=== PATIENT | female | born 1980 | race Hispanic/Latino ===

== ENCOUNTER 2017-06-01 00:28 | Emergency (ER) | payer SELFPAY ==
[~2017-06-01] VITALS: Ht 165.1 cm; Wt 79.9 kg
[2017-06-01 01:20] LABS: BASOPHIL (%) 1.3 % (0-1); BASOPHIL COUNT 0.1 K/uL (0-0.1); EOSINOPHIL (%) 1.4 % (0-5); EOSINOPHIL COUNT 0.1 K/uL (0-0.3); HEMATOCRIT 38.7 % (36.0-46.0); HEMOGLOBIN 13.4 G/DL (11.9-15.5); IMMATURE GRANULOCYTE (%) 0.2 % (0.0-0.7); LYMPHOCYTE (%) 41.2 % (15-42); LYMPHOCYTE COUNT 3.4 K/uL (1.0-2.8); MCH 35.1 PG (29.0-34.0); MCHC 34.6 G/DL (30.0-36.0); MCV 101.3 FL (83-99); MONOCYTE (%) 7.8 % (3-12); MONOCYTE COUNT 0.7 K/uL (0-0.8); NEUTROPHIL (%) 48.1 % (45-76); PLATELET COUNT 119 K/uL (156-360); RBC DIS.WIDTH-CV 14.6 % (11.8-14.6); RBC DIS.WIDTH-SD 53.9 % (39-53); RED BLOOD COUNT 3.82 M/uL (3.80-5.20); WHITE BLOOD COUNT 8.3 K/uL (4.1-10.2)
[2017-06-01 01:28] LABS: CHLORIDE 101 mEq/L (99-109); POTASSIUM 2.9 mEq/L (3.7-5.4); SODIUM 141 mEq/L (136-147)
[2017-06-01 01:31] LABS: GLUCOSE 110 mg/dL (70-99); TOTAL PROTEIN 8.7 g/dL (6.4-8.3)
[2017-06-01 01:33] LABS: SERUM ETHYL ALCOHOL 294 mg/dL
[2017-06-01 01:34] LABS: CREATININE 0.7 mg/dL (0.6-1.3); GFR ESTIMATE (CALCULATED) > 59 mL/min/
[2017-06-01 01:35] LABS: ALKALINE PHOSPHATASE 221 IU/L (3-129)
[2017-06-01 01:36] LABS: AST (GOT) 305 IU/L (2-34); UREA NITROGEN (BUN) 6 mg/dL (9-23)
[2017-06-01 01:38] LABS: ACETAMINOPHEN (TYLENOL) < 10 mcg/mL (10-30); ALT (GPT) 186 IU/L (3-49); SALICYLATE < 5.0 MG/DL (15-30)
[2017-06-01 01:46] LABS: QUANTITATIVE HCG < 4.0 MIU/ML
[2017-06-01 09:47] VITALS: BP 120/61
== END 2017-06-01 09:57 | disposition home or self-care (01) ==
LOC: EME 00:28
PROVIDERS: Emergency Medicine
DX: F10.129 Alcohol abuse with intoxication, unspecified (principal); E87.6 Hypokalemia; Z04.6 Encounter for general psychiatric examination, requested by authority; F17.200 Nicotine dependence, unspecified, uncomplicated; Y90.8 Blood alcohol level of 240 mg/100 ml or more
CPT/HCPCS: 80053; 81003; 84702; 85025; 90837; 99281; 99285; G0480